=== PATIENT | female | born 1950 | race Caucasian/White ===

== ENCOUNTER 2017-07-26 20:48 | Emergency (ER) | payer OTHER ==
--- NOTE | 2017-07-26 22:43 | Emergency Department Record ---
History of Present Illness - General Chief Complaint: Laceration(s) Stated Complaint: RT MIDDLE FINGER LACERATION/FLAYED Time Seen by Provider: 07/26/17 22:41 Source: Patient Mode of Arrival: Ambulatory Limitations: No limitations - History of Present Illness Initial Commments: 67 yo female presents with a right middle finger injury. She was walking her dog and it suddenly bolted. The leash injured her right middle finger. She is unsure of her last tetanus shot. She has a laceration over the knuckle. Onset/Timin -: Hour(s) Extremity Location: Right: Hand Place: Home Context: Accidental Associated Symptoms: None - Johnson Coma Scale Eye Response: (4) Open spontaneously Motor Response: (6) Obeys commands Verbal Response: (5) Oriented Stacy Total: 15 - Related Data Previous Rx's Medication Instructions Recorded Cephalexin [Keflex] 500 mg PO TID #21 cap 07/26/17 Hydrocodone/Acetaminophen [[place] 1 tab PO Q8H PRN #15 tab 07/26/17 5mg/325mg] Cephalexin [Keflex] 10 ml PO BID #140 ml 07/27/17 Allergies Allergy/AdvReac Type Severity Reaction Status Date / Time No Known Drug Allergies Allergy Verified 07/26/17 22:37 Travel Screening - Travel/Exposure Within Last 30 Days Have you traveled within the last 30 days?: No - Travel/Exposure Within Last Year Have you traveled outside the [place] in the last year?: No - Additonal Travel Details Have you been exposed to anyone with a communicable illness?: No - Travel Symptoms Symptom Screening: None Review of Systems Constitutional: Denies: Chills, Fever, Malaise, Weakness Eyes: Denies: Eye discharge ENT: Denies: Congestion, Throat pain Respiratory: Denies: Cough Cardiovascular: Denies: Chest pain, Syncope Endocrine: Denies: Fatigue Gastrointestinal: Denies: Abdominal pain, Diarrhea, Nausea, Vomiting Genitourinary: Denies: Dysuria Musculoskeletal: Reports: Arthralgia Skin: Reports: Other (laceration). Denies: Bruising, Change in color, Rash Neurological: Denies: Headache, Numbness, Vertigo, Weakness Psychiatric: Denies: Anxiety Hematological/Lymphatic: Denies: Blood Clots, Easy bleeding, Easy bruising, Swollen glands Past Medical History - SOCIAL HISTORY Smoking Status: Never smoker Alcohol Use: None Drug Use: None - RESPIRATORY Hx Respiratory Disorders: No - CARDIOVASCULAR Hx Cardio Disorders: No - NEURO Hx Neuro Disorders: No - GI Hx GI Disorders: No - Hx Genitourinary Disorders: No - ENDOCRINE Hx Endocrine Disorders: No - MUSCULOSKELETAL Hx Musculoskeletal Disorders: No - PSYCH Hx Psych Problems: No - HEMATOLOGY/ONCOLOGY Hx Hematology/Oncology Disorders: No Family Medical History Any Significant Family History?: No Physical Exam - General General Appearance: Alert, Oriented x3, Cooperative, No acute distress Limitations: No limitations - Head Head exam: Atraumatic, Normal inspection - Eye Eye exam: Normal appearance. negative: Conjunctival injection, Scleral icterus - ENT ENT exam: Normal exam Ear exam: Normal external inspection Nasal Exam: Normal inspection Mouth exam: Normal external inspection - Neck Neck exam: Normal inspection - Cardiovascular Cardiovascular Exam: Regular rate, Normal rhythm, Normal heart sounds Peripheral Pulses: 2+: Radial (R) - Rectal Rectal exam: Deferred - exam: Deferred - Extremities Extremities exam: Full ROM, Joint swelling, Normal capillary refill, Tenderness. negative: Normal inspection Image of Hand: 1 - 2.5cm laceraton, no FB, no visible tendon injury Image of Finger Tip: 1 - 1cm laceration, tip is flex slightly 2 - laceration 1cm - Back Back exam: Denies: Tenderness - Neurological Neurological exam: Alert, Normal gait, Oriented X3. negative: Motor sensory deficit - Psychiatric Psychiatric exam: Normal affect, Normal mood - Skin Skin exam: Other (laceration ot R middle finger at PIP) Course Vital Signs 07/26/17 22:30 Temperature 98.7 F Pulse Rate 69 Respiratory 20 Rate Blood Pressure 182/98 Pulse Ox 96 - Reevaluation(s) Reevaluation #1: Procedure finger lacerations Proximal 2.5cm Distal 1cm Betadine prep digital block with lidocaine plain 4ml Hibaclens scrub Copious NS irrigation Brief use of a tourniquet to examine in a bloodless field PIP with partial injury to the extensor tendon DIP unable to fully extend indicating likely distal tendon injury No FB Both lacerations again copiously irrigated. The Proximal flap like laceration was closed with Prolene 4-0 with 12 sutures The distal lac was closed with 4 sutures The patient will be dressed and splinted in extension She will be given a referral to hand surgery 07/26/17 23:45 Disposition Disposition: Discharge Clinical Impression: Injury of extensor tendon of right hand Finger laceration Qualifiers: Encounter type: initial encounter Finger: middle finger Damage to nail status: without damage Foreign body presence: without foreign body Laterality: right Qualified Code(s): S61.212A - Laceration without foreign body of right middle finger without damage to nail, initial encounter Disposition: Home, Self-Care Condition: (1) Good Instructions: Laceration (ED) Additional Instructions: Call Dr Erwin tomorrow for close follow up of the finger laceration and likely tendon injury Return to the ER if you have any redness, pain, pus, fever, or new concerns about the comfort of the splint You will need the suture removed in the ER or your doctor's office in 12 days Keep the splint on Prescriptions: Cephalexin [Keflex] 10 ml PO BID #140 ml Cephalexin [Keflex] 500 mg PO TID #21 cap Hydrocodone/Acetaminophen [[place] 5mg/325mg] 1 tab PO Q8H PRN #15 tab PRN Reason: Pain - General Referrals: JENNIFER ERWIN M.D. [MEDICAL DOCTOR] - Forms: Patient Portal Access Time of Disposition: 23:52 Quality - Quality Measures Quality Measures: N/A - Blood Pressure Screening Does Patient Have Any of the Following: No Blood Pressure Classification: Hypertensive Reading Systolic Measurement: 182 Diastolic Measurement: 98 Screening for High Blood Pressure: < Pre-Hypertensive BP, F/U Documented > [ [id number]] Pre-Hypertensive Follow-up Interventions: Referral to alternative/primary care provider.
[2017-07-26] MEDS ORDERED: CEPHALEXIN 500 MG CAPSULE PO STA (23:02)
[2017-07-26] MEDS ORDERED: Diph,Pert(Acell),Tet Vac 0.5 ML SYR IM ONE (23:58)
--- NOTE | 2017-07-27 16:08 | RADIOLOGY REPORT ---
EXAM: FINGER(S), RIGHT HISTORY: INJURY. TECHNIQUE: Three views of the right third digit were performed. FINDINGS: There is soft tissue swelling. No evidence of fracture or dislocation. There is bony exostosis of the proximal interphalangeal joint space. IMPRESSION: NO ACUTE FRACTURE OR DISLOCATION. THERE IS SOFT TISSUE SWELLING OF THE THIRD DIGIT. THERE IS BONY EXOSTOSIS OF THE PROXIMAL INTERPHALANGEAL JOINT SPACE. JOB NUMBER: [id number] MTDD
== END 2017-07-27 00:22 | disposition home or self-care (01) ==
LOC: ER 20:48
DX: S61.212A Laceration without foreign body of right middle finger without damage to nail, initial encounter (principal); S66.322A Laceration of extensor muscle, fascia and tendon of right middle finger at wrist and hand level, initial encounter; Y93.K1 Activity, walking an animal; Y92.009 Unspecified place in unspecified non-institutional (private) residence as the place of occurrence of the external cause
CPT/HCPCS: 12042; 73140; 90715; 96372; 99283; 99284